=== PATIENT | female | born 1985 | race Caucasian/White ===

== ENCOUNTER 2017-07-07 12:57 | Outpatient (RCR) | payer OTHER | END 2017-07-14 | LOC: M OT 12:57 | DX: Z51.89 Encounter for other specified aftercare (principal); M65.4 Radial styloid tenosynovitis [de Quervain] | CPT/HCPCS: 97140 ==

== ENCOUNTER 2017-07-15 13:02 | Outpatient (RCR) | payer OTHER | END 2017-08-14 | LOC: M OT 07-17 13:00 | DX: Z51.89 Encounter for other specified aftercare (principal); M65.4 Radial styloid tenosynovitis [de Quervain] ==

== ENCOUNTER 2017-08-19 11:16 | Outpatient (RCR) | payer OTHER | END 2017-09-13 | LOC: M OT 11:16 | DX: Z51.89 Encounter for other specified aftercare (principal); M65.4 Radial styloid tenosynovitis [de Quervain] | CPT/HCPCS: 97110 ==

== ENCOUNTER 2018-08-17 08:59 | Outpatient (CLI) | payer OTHER ==
[~2018-08-17] VITALS: Ht 167.6 cm; Wt 109.0 kg
[2018-08-17 09:18] VITALS: BP 115/75
[2018-08-17] MEDS ORDERED: PRENTAB9 PO (09:20)
[2018-08-17 10:52] VITALS: BP 99/64
== END 2018-08-17 13:07 | disposition home or self-care (01) ==
LOC: M LDO 08:59
PROVIDERS: ATTEND Obstetrics & Gynecology
DX: O47.1 False labor at or after 37 completed weeks of gestation (principal); Z3A.40 40 weeks gestation of pregnancy
CPT/HCPCS: 59025; G0378; G0463

== ENCOUNTER 2018-08-18 09:12 | Inpatient (IN) | payer OTHER ==
[~2018-08-18] VITALS: Ht 167.6 cm; Wt 108.9 kg
[2018-08-18] VITALS (9 sets, daily range): BP systolic 113–138; BP diastolic 54–75
[~2018-08-18 09:12] MED LIST: PRENTAB9 PO
[2018-08-18] MEDS ORDERED: OXYTOCIN INJ 10 UNITS/ML VIAL (J2590) As Ordered ONE (09:41)
[2018-08-18] MEDS ORDERED: OXYTOCIN 30 UNITS IN 0.9% NaCl 500ML IV BAG (J2590) As Ordered ONE (09:41)
[2018-08-18 10:04] LABS: CORD GAS ABE V -3.6; CORD GAS HCO3 V 21.5 MEQ/L; CORD GAS O2 SAT V 77.3 %; CORD GAS PH V 7.359 UNITS; CORD GAS SBC V 21.1 MEQ/L; CORD GAS TCO2 V 22.7 MEQ/L
[2018-08-18 10:05] LABS: CORD GAS HCO3 A 23.9 MEQ/L; CORD GAS O2 SAT A 39.3 %; CORD GAS PH A 7.298 UNITS; CORD GAS PO2 A 20.3 mmHg; CORD GAS SBC A 20.6 MEQ/L; CORD GAS TCO2 A 25.5 MEQ/L
[2018-08-18 10:12] LABS: HEMATOCRIT 41.4 % (36.0-47.0); HEMOGLOBIN 13.7 g/dl (12.0-15.5); MEAN CORPUSCULAR HEMOGLOBIN 28.8 pg (27.0-33.0); MEAN CORPUSCULAR HGB CONC 33.1 g/dl (32.0-36.5); MEAN CORPUSCULAR VOLUME 87.2 fl (80.0-96.0); PLATELET COUNT, AUTOMATED 227 10^3/uL (150-450); RED BLOOD COUNT 4.75 10^6/uL (4.00-5.40); WHITE BLOOD COUNT 15.7 10^3/uL (4.0-10.0)
[2018-08-18] MEDS ORDERED: OXYTOCIN DRIP 30 UNITS in APPROPRIATE DILUENT 1 EA IV SCH (10:16)
[2018-08-18] MEDS ORDERED: LR 1,000 ML IV SCH (10:22)
[2018-08-18] MEDS ORDERED: MOM 30ML SUSPENSION UDC PO PRN (10:30)
[2018-08-18] MEDS ORDERED: METHYLERGONOVINE MALEATE 0.2 MG TAB PO PRN (10:30)
[2018-08-18] MEDS ORDERED: IBUPROFEN 800 MG TAB PO PRN (10:30)
[2018-08-18] MEDS ORDERED: DIBUCAINE 1% OINTMENT 30GM TOP PRN (10:30)
[2018-08-18] MEDS ORDERED: DOCUSATE SODIUM 100 MG CAP PO PRN (10:30)
[2018-08-18] MEDS ORDERED: MEASLES,MUMPS,RUBELLA VACCINE INJ (MMR-II) (90707) SC SCH (10:30)
[2018-08-18] MEDS ORDERED: RHOGAM 300 MCG (1500 IU) INJ (J2790) IM SCH (10:30)
[2018-08-18] MEDS ORDERED: OXYTOCIN INJ 10 UNITS/ML VIAL (J2590) IV ONE (10:30)
[2018-08-18] MEDS ORDERED: IBUPROFEN 600 MG TAB PO PRN (10:30)
[2018-08-18] MEDS ORDERED: ANUSOL HC CREAM 30GM TOP PRN (10:30)
[2018-08-18] MEDS ORDERED: ACETAMINOPHEN TAB 650MG DOSE (2X325MG) PO PRN (10:30)
[2018-08-18] MEDS: ACETAMINOPHEN 500 MG TAB PO PRN ×2 (11:50→18:45)
--- NOTE | 2018-08-18 12:55 | DN ---
DATE OF DELIVERY: 08/18/2018 This lady is a 3, para 2 admitted at 40 and 2 and fully dilated with meconium stained liqua and active pushing. She had a spontaneous vaginal delivery of a live female weighing 3340 grams, scores of 9 and 9 at one and five minutes, respectfully, 7 pounds 6 ounces. She had a little varicose vein in the introital area which was oversewn with a #2-0 Vicryl on a J339. Arterial pH 7.29, base excess -3.0, venous pH 7.35, base excess -3.6. Uterus contracted well under Pitocin. Anterior, posterior and lateral parish were intact. Sphincter was intact. The patient and baby tolerated procedure well. edited: 08/20/2018 1339 tkf MTDD
--- NOTE | 2018-08-18 13:15 | HPE ---
DATE OF ADMISSION: 08/18/2018 32-year-old 3, para 2, last menstrual period 11/09/2017, EDC 08/16/2018 at 40 and 2 weeks gestation in active labor, meconium stained liquor, fully dilated. The risk factors are asthma, BMI of 36, and CF carrier PAST HISTORY: 2016 at 41 weeks, spontaneous vaginal delivery with epidural 7 pounds 4 ounces. 2007 at 41 weeks, spontaneous vaginal delivery, live , 8 pounds with epidural. LABORATORIES: O+, HIV negative, hep negative, RPR negative, rubella immune. Varicella immune. Pap was negative, HPV negative. Urine was negative. Gonorrhea and chlamydia negative. 1-hour glucose early was 111. 1-hour GTT at 28 weeks was 116. Group B streptococcus (GBS) is negative. Blood pressure is 113/54, respirations 18, pulse 99 and temperature is 98.4. The patient is fully dilated and pushing, anticipate spontaneous vaginal delivery. A category one strip with occasional decelerations with pushing. With heavy meconium stained liquid, neonatology informed.
[2018-08-18] MEDS ORDERED: SLF 3 ML SYR IV PRN (13:45)
[2018-08-18] MEDS ORDERED: SLF 3 ML SYR IV SCH (14:00)
[2018-08-19 06:24] VITALS: BP 129/78
[2018-08-19 06:48] LABS: HEMATOCRIT 38.1 % (36.0-47.0); HEMOGLOBIN 12.4 g/dl (12.0-15.5); MEAN CORPUSCULAR HGB CONC 32.5 g/dl (32.0-36.5); PLATELET COUNT, AUTOMATED 183 10^3/uL (150-450); RED BLOOD COUNT 4.28 10^6/uL (4.00-5.40); WHITE BLOOD COUNT 11.7 10^3/uL (4.0-10.0)
[2018-08-19] MEDS ORDERED: COLA100C5 PO (06:51)
[2018-08-19] MEDS ORDERED: PROC1CRE5 TOP (06:51)
[2018-08-19] MEDS ORDERED: IBUP80TA PO (06:51)
[2018-08-19] MEDS ORDERED: DIBU10OI TOP (06:51)
[2018-08-19] MEDS ORDERED: PRENCHW PO (06:51)
[2018-08-19] MEDS ORDERED: ACET1TAB55 PO (06:51)
--- NOTE | 2018-08-19 07:21 | IPN ---
DATE: 08/19/2018 This lady is a 32-year-old 3, para 2 who was admitted fully dilated and pushing with significant meconium. She precipitously delivered a live female 7 pounds 6 ounces, 3340 grams, scores of 9 and 9 at one and five minutes respectively. She sustained a small little introital blood vessel which was oversewn with #2-0 Vicryl. Uterus contracted well down on Pitocin. Arterial pH was 7.29, base excess -3.0, venous pH 7.35, base excess -3.6. Her admitting hemoglobin was 13.7, hematocrit 41.4, platelets are 227. day #1 hemoglobin is pending. Her vital signs this morning her blood pressure is 129/78, respirations 18, pulse 80, temperature 97.9. We discussed phlebitis, cystitis, mastitis, endometritis, cellulitis, diet, exercise, pain management, perineal breast and wound care. control will be planned at her six week checkup. The rest examination unremarkable. Normocephalic, atraumatic. Neck full range of motion. Pupils equal and reactive to light. Distal pulses symmetric. No evidence of deep vein thrombosis (DVT), pulmonary embolism (PE), or superficial phlebitis. Chest is clear bilaterally to the bases. No wheezes or rhonchi. No CVA tenderness. Abdomen soft, uterus 2 below. Lochia is moderate. Four quadrant bowel sounds are noted. She has no cough, shortness of breath or dyspnea on exertion. No complaint of incontinence, urgency or frequency. No nausea, vomiting, diarrhea or constipation. In summary we have a term gestation, active labor, precipitously delivered. Plans are for discharge for the patient today. We are pending the discharge of the baby. She will have a six week checkup.
[2018-08-19] MEDS ORDERED: PRENATAL VITAMINS CHEWABLE TABLET PO SCH (09:00)
== END 2018-08-19 13:05 | disposition home or self-care (01) | DRG 807 ==
LOC: M LDO 09:12 → M LDI 09:27 → M OBS 14:47
PROVIDERS: ADMIT Advanced Practice Midwife; ATTEND Advanced Practice Midwife
PROC: 10E0XZZ Delivery of Products of Conception, External Approach (ICD-10-PCS; principal; 2018-08-18)
DX: O77.0 Labor and delivery complicated by meconium in amniotic fluid (principal); Z37.0 Single live birth; O48.0 Post-term pregnancy; Z3A.40 40 weeks gestation of pregnancy; O62.3 Precipitate labor; J45.909 Unspecified asthma, uncomplicated; O99.52 Diseases of the respiratory system complicating childbirth

== ENCOUNTER 2020-04-04 15:10 | Inpatient (IN) | payer OTHER ==
[2020-04-04] VITALS (8 sets, daily range): BP systolic 115–137; BP diastolic 62–90
[~2020-04-04 15:10] MED LIST changes: +ACET1TAB55 PO; +COLA100C5 PO; +DIBU10OI TOP; +IBUP80TA PO; +PRENCHW PO; +PROC1CRE5 TOP
[2020-04-04] MEDS ORDERED: LR 1,000 ML IV SCH (15:54)
[2020-04-04] MEDS ORDERED: LACTATED RINGER'S 1000 ML IV ONE (16:00)
[2020-04-04 16:29] LABS: HEMATOCRIT 42.5 % (36.0-47.0); HEMOGLOBIN 13.8 g/dl (12.0-15.5); MEAN CORPUSCULAR HEMOGLOBIN 27.2 pg (27.0-33.0); MEAN CORPUSCULAR HGB CONC 32.5 g/dl (32.0-36.5); MEAN CORPUSCULAR VOLUME 83.7 fl (80.0-96.0); PLATELET COUNT, AUTOMATED 249 10^3/uL (150-450); RED BLOOD COUNT 5.08 10^6/uL (4.00-5.40); WHITE BLOOD COUNT 15.4 10^3/uL (4.0-10.0)
[2020-04-04] MEDS ORDERED: TUMS500C PO (16:31)
[2020-04-04] MEDS ORDERED: VITAD400CA FT (16:31)
[2020-04-04] MEDS ORDERED: OXYTOCIN 30 UNITS IN 0.9% NaCl 500ML IV BAG (J2590) As Ordered ONE (17:00)
[2020-04-04 17:36] LABS: CORD GAS ABE V -2.1; CORD GAS O2 SAT V 63.3 %; CORD GAS PCO2 V 45.7 mmHg; CORD GAS PH V 7.339 UNITS; CORD GAS SBC V 21.8 MEQ/L; CORD GAS TCO2 V 25.4 MEQ/L
[2020-04-04 17:37] LABS: CORD GAS ABE A -4.7; CORD GAS HCO3 A 25.2 MEQ/L; CORD GAS O2 SAT A 30.2 %; CORD GAS PCO2 A 66.5 mmHg; CORD GAS PH A 7.196 UNITS; CORD GAS PO2 A 18.5 mmHg; CORD GAS SBC A 18.9 MEQ/L; CORD GAS TCO2 A 27.2 MEQ/L
[2020-04-04] MEDS ORDERED: OXYTOCIN DRIP 30 UNITS in IV 1 EA IV SCH (17:40)
[2020-04-04] MEDS ORDERED: BENZOCAINE 20% HEMORRHOIDAL OINTMENT 28GM TUBE TOP PRN (17:45)
[2020-04-04] MEDS ORDERED: ACETAMINOPHEN TAB 650MG DOSE (2X325MG) PO PRN (17:45)
[2020-04-04] MEDS ORDERED: RHOGAM 300 MCG (1500 IU) INJ (J2790) IM SCH (17:45)
[2020-04-04] MEDS ORDERED: IBUPROFEN 600MG TAB PO PRN (17:45)
[2020-04-04] MEDS ORDERED: MEASLES,MUMPS,RUBELLA VACCINE INJ (MMR-II) (90707) SC SCH (17:45)
[2020-04-04] MEDS ORDERED: ACETAMINOPHEN 500 MG TAB PO PRN (17:45)
--- NOTE | 2020-04-04 17:50 | DNPDOC ---
[facility] Delivery Note Delivery Note DATE OF DELIVERY: 04 Apr 2020 PREDELIVERY DIAGNOSIS: 40w2d gestation and labor. POST DELIVERY DIAGNOSIS: Delivered. PROCEDURE: Spontaneous vaginal delivery PLATE CLEANER: Dr. Francisca Haywood MD for [facility] service ANESTHESIA: none ESTIMATED BLOOD LOSS: 200 mL. FINDINGS: 8 pound 1 ounce (3650g) male , Score 7/9, nuchal cord times 1 DELIVERY SUMMARY: Lily is a 34yo [id number] s/p uncomplicated at 1706 on 04/04/20 after presenting in active labor at 40w2d. She was 6cm on presentation and rapidly progressed to C/C/-1, at which point she had SROM, clear and unavoidable urge to push. Dr. Chicas was needed urgently for another patient, so I performed the delivery for Lily. With excellent maternal effort, head delivered OA, restituted DEYSI. Tight nuchal cord was not reducible prior to delivery of the body. Right anterior shoulder easily delivered followed by posterior shoulder and corpus. Nuchal cord then reduced. Terminal meconium observed. placed on maternal abdomen, spontaneous cry noted and was vigorous with apgars 7 /9, nose and mouth suctioned with bulb suction. After approximately 2 minutes, cord was clamped x2 and cut by FOB. Cord gases obtained with pHa 7.196 BE -4.7 and pHv 7.339 BE -2.1. Cord blood obtained for MBT. With traction on the cord and uterine massage, placenta delivered spontaneously and intact with 3 vessel centrally inserted cord. More uterine massage performed, IV pitocin given per protocol, fundus then firm at u-2cm with hemostasis noted. Inspection of perineum and vagina revealed small superficial sanaz at introitus repaired with 4-0 vicryl with a single figure of 8 suture with complete reapproximation and hemostasis noted. Mom and infant were doing well when I left the room. MD Chastity Nguyễn Katrina D MD Apr 04, 2020 17:50
[2020-04-04] MEDS ORDERED: OXYTOCIN INJ 10 UNITS/ML VIAL (J2590) IV ONE (18:00)
[2020-04-04] MEDS: IBUPROFEN 800 MG TAB PO PRN (18:12)
--- NOTE | 2020-04-04 19:07 | HPEPDOC ---
Obstetrical History & Physical General Date of Admission Apr 04, 2020 at 15:54 Primary Care Physician: Koby Chicas MD History of Present Illness Vital Signs Label Value Date Time Pulse 107 04/04/20 1802 Respiratory Rate 18 bpm 04/04/20 1802 Blood Pressure Assessment 133/65 (87) 04/04/20 1802 Source Automatic Cuff (NIBP) Blood Pressure Assessment 131/63 (85) 04/04/20 1747 Source Automatic Cuff (NIBP) Respiratory Rate 18 bpm 04/04/20 1747 Pulse 107 04/04/20 1747 Pulse 109 04/04/20 1735 Respiratory Rate 18 bpm 04/04/20 1735 Blood Pressure Assessment 130/79 (96) 04/04/20 1735 Source Automatic Cuff (NIBP) Blood Pressure Assessment 115/90 (98) 04/04/20 1714 Source Automatic Cuff (NIBP) Respiratory Rate 18 bpm 04/04/20 1714 Pulse 115 04/04/20 1714 Pulse 112 04/04/20 1645 Respiratory Rate 18 bpm 04/04/20 1645 Blood Pressure Assessment 134/62 (86) 04/04/20 1645 Source Automatic Cuff (NIBP) Bedside Pulse Oximetry 98 % 04/04/20 1645 Blood Pressure Assessment 126/81 (96) 04/04/20 1534 Source Automatic Cuff (NIBP) Respiratory Rate 20 bpm 04/04/20 1534 Pulse 121 04/04/20 1534 Patient Temperature 98.1 degrees F 04/04/20 1534 Temperature Source Temporal 04/04/20 1534 34 yo LMP 06/27/2019 EDC 04/02/20 AT 40.2 WEEKS ACTIVE LABOR AT TERM AFTER MEMBRANE STRIPPING Chief Complaint: Contractions, term Information Provided By: Patient Age: 34 : 4 Term: 3 Pre-term: 0 Abortions: 0 Livin Care Care: Good Care Dating Final EDC: Apr 02, 2020 Final EDC for Daily Update: Apr 02, 2020 Final EDC by: LMP (06/27/19) LMP: Jun 27, 2019 1st Trimester Date: Sep 15, 2019 Weeks + Days: 11.3 Estimated Date of Confinement: Apr 02, 2020 EGA at Admission: 40.2 Antepartum Course Diagnos(e)s risk factors short interval bmi 35.5 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 Sex of : Male Complications: No Past Obstetrical History #2: Past Obstetrical History: Multigravida Date of Delivery: Oct 22, 2016 Gestation: 41 Type of Delivery: Spontaneous Vaginal Del. Sex of Infant: Female Complications: No Past Obstetrical History #3: Past Obstetrical History: Multigravida Date of Delivery: Oct 22, 2018 Gestation: 41 Type of Delivery: Spontaneous Vaginal Del. Sex of : Female Complications: No WARPER TENDER History: No pertinent history Past Medical History Surgical History: Denies/None Family History Significant Family History: No pertinent family hx Social History Marital Status: Family situation: Spouse/partner home Psychosocial History: No pertinent psych hx, Depression * Smoker: non-smoker Alcohol: Denies Drugs: denies Abuse Violence Screening Have you been hit/kicked/slapp: No Have you been sexually assault: No Imunizations Tdap status: current Influenza Status: current Allergies Coded Allergies: No Known Allergies (Unverified , 08/17/18) Medications Scheduled No.137/Iron/Folic Acd ( Vitamin Tablet) 1 Each Tablet, 1 TAB PO DAILY Vitamin D (Vitamin D3) 10 Mcg Tablet, 400 MCG FT DAILY Scheduled PRN Calcium Carbonate (Tums) 200 Mg Tab.chew, 500 MG PO PRN PRN for HEARTBURN Physical Examination Physical Examination GENERAL: Alert and oriented times three. BREAST: . ABDOMEN: Gravid and non-tender to touch. FETUS: Is vertex (VTX) by sterile vaginal examination (SVE), fetus is vertex (VTX) by Joel. HEART RATE: Regular rate and rhythm. LUNGS: Clear to auscultation (CTA). EXTREMITIES: No edema. No clonus. Deep tendon reflexes NORMAL Other physical findings ACTIVE LABOR IN ACUTE DISTRESS CONTRACTIONS MODERATE FELT LIKE PUSHING WAS 8 CM VERTEX OT -1 STATION SROM ACTIVELY PUSHING UNCONTROLLABLE Laboratory Data 24H LABS Laboratory Tests 2 04/04/20 16:05: Serology Scanned Report Hepatitis B Testing Pertinent Laboratoy Data Blood Type: O+ RBC Antibody Screen: Negative HIV: Negative Hepatitis B: Negative Rapid Plasma Reagin: Nonreactive Rubella: Immune Varicella: Immune Chlamydia/Gonorrhea: Negative Group B Streptococcus: Unknown Cystic Fibrosis: Negative Anatomy Ultrasound Placenta Location: Anterior Normal Anatomy: Yes Steroid Therapy Steroid Therapy: No Vaginal Examination Dilation: 8 cm Effacement: 100% Station: -1 Cervical Consistency: Soft Cervical Position: Anterior Presentation: Cephalic presentation Position: Vertex (occiput) Assessment Variability: Moderate Accelerations: Present Decelerations: None Tocometer Contractions: Yes Frequency: regular, every 1-5 min. Duration: less than 60 seconds Strength: palpated as strong Assessment/Plan Assessment 34 year-old (G4 para (P 3 at 40.2 weeks by 11.3week ultrasound. Presents to Labor and Delivery ACTIVE AT 8 CM . Plan Admit and orient. 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 Diet: NPO Group B Streptococcus (GBS) [negative]. Labs and intravenous (IV) per unit protocol. Counseled on Pitocin and induction of labor (IOL). Lactated Ringers (LR): Bolus mL, then at mL/hr. Anticipate [normal spontaneous delivery ( IMMINENT . C-S as appropriate. Labor and Delivery Counseling Item Value Date Time White Blood Count 15.4 10^3/uL H 04/04/20 1618 Red Blood Count 5.08 10^6/uL 04/04/20 1618 Hemoglobin 13.8 g/dl 04/04/20 1618 Hematocrit 42.5 % 04/04/20 1618 Mean Corpuscular Volume 83.7 fl 04/04/20 1618 Mean Corpuscular Hemoglobin 27.2 pg 04/04/20 1618 Mean Corpuscular Hemoglobin Concent 32.5 g/dl 04/04/20 1618 Red Cell Distribution Width 14.5 % 04/04/20 1618 Platelet Count 249 10^3/uL 04/04/20 1618 Nucleated Red Blood Cells % (auto) 0.0 % 04/04/20 1618 PLAN IMMENENT DELIVERY NO TIME FOR EPIDURAL IV STARTED AND PATIENT PUSHING Koby Chicas MD Apr 04, 2020 16:12
[2020-04-04] MEDS: SERTRALINE HCL 25 MG TABLET PO SCH (21:03)
[2020-04-04] MEDS: DOCUSATE SODIUM 100MG CAPSULE PO PRN (21:07)
[2020-04-04] MEDS: CALCIUM CARBONATE 500 MG CHEW U/D PO PRN (22:16)
[2020-04-05] MEDS: IBUPROFEN 800 MG TAB PO PRN ×2 (05:24→13:06)
[2020-04-05 06:00] VITALS: BP 133/60
[2020-04-05] MEDS: PRENATAL VITAMINS CHEWABLE TABLET PO SCH (08:45)
[2020-04-05 18:00] VITALS: BP 141/76
[2020-04-05] MEDS: SERTRALINE HCL 25 MG TABLET PO SCH (20:58)
[2020-04-05] MEDS: DOCUSATE SODIUM 100MG CAPSULE PO PRN (20:58)
[2020-04-05] MEDS: CALCIUM CARBONATE 500 MG CHEW U/D PO PRN (22:10)
[2020-04-06 05:52] VITALS: BP 137/63
[2020-04-06] MEDS ORDERED: ACET-683 PO (06:58)
[2020-04-06] MEDS ORDERED: IBUP80TA PO (06:58)
--- NOTE | 2020-04-06 07:13 | DS.PDOC ---
Discharge Summary General Date of Admission Apr 04, 2020 at 15:54 Date of Discharge Apr 06, 2020 Discharge Summary HOSPITAL COURSE: Lily is a 34 yo G4 now P4 who underwent an uncomplicated on 04Apr2020 after being admitted for active labor. Her course has been unremarkable. On her day of discharge she met all appropriate discharge criteria. She was ambulating, voiding, tolerating a regular diet, had minimal lochia, and her pain was well controlled with PO pain medications. DISCHARGE MEDICATIONS: Please see below. ALLERGIES: Please see below. PHYSICAL EXAMINATION ON DISCHARGE: VITAL SIGNS: Please see below. GENERAL: AAOX3, laying in bed, NAD, pleasant and conversant ABDOMINAL EXAMINATION: Abdomen soft, nondistended. No tenderness to palpation. Fundus firm at U-2. No fundal tenderness. EXTREMITIES: No edema PSYCHIATRIC EXAMINATION: Affect appropriate LABORATORY DATA: Please see below. ACTIVITY: Pelvic rest for 6 weeks. DIET: Regular DISCHARGE PLAN: Discharge home or to boarder DISPOSITION: .Discharge home or to boarder on 06Apr2020 DISCHARGE INSTRUCTIONS: 1. Pelvic rest for 6weeks ITEMS TO FOLLOWUP ON ON OUTPATIENT: 1. appointment in 6-8 weeks DISCHARGE CONDITION: Stable TIME SPENT ON DISCHARGE: Greater than 20 minutes. Martha Oconnor DO Vital Signs/I&Os Vital Signs Date Time Temp Pulse Resp B/P (MAP) Pulse Ox O2 Delivery O2 Flow Rate FiO2 04/06/20 05:52 96.9 88 18 137/63 (87) 04/04/20 19:42 97 Room Air Discharge Medications Scheduled No.137/Iron/Folic Acd ( Vitamin Tablet) 1 Each Tablet, 1 TAB PO DAILY, (Reported) Vitamin D (Vitamin D3) 10 Mcg Tablet, 400 MCG FT DAILY, (Reported) Scheduled PRN Acetaminophen (Acetaminophen) 500 Mg Tablet, 1,000 MG PO Q6HP PRN for PAIN LEVEL 6-10 Calcium Carbonate (Tums) 200 Mg Tab.chew, 500 MG PO PRN PRN for HEARTBURN, (Re ported) Ibuprofen (Ibuprofen) 800 Mg Tablet, 800 MG PO Q8HP PRN for PAIN LEVEL 6-10 Allergies Coded Allergies: No Known Allergies (Unverified , 08/17/18) MARTHA OCONNOR DO Apr 06, 2020 07:13
[2020-04-06] MEDS: PRENATAL VITAMINS CHEWABLE TABLET PO SCH (08:06)
--- NOTE | 2020-04-12 09:26 | IPNPDOC ---
Text Note Date of Service The patient was seen on 04/04/20 NOTE PATIENT REQUESTED CIRCUMCISION INFANT. REVIEWED RISK BENEFITS OF CIRCUMCISION . EXPRESSED UNDERSTANDING RISK BLEEDING INFECTION . REVIEWED PENILE BLOCK SIGNED CONSENT 20 MINUTE DISCUSSION ALL QUESTIONS ANSWERED AWAITING CLEARANCE BY DRAPERY WORKER Ivanna ROBERTS, I+Ivanna WIN I+O Vital Signs Date Time Temp Pulse Resp B/P (MAP) Pulse Ox O2 Delivery O2 Flow Rate FiO2 04/06/20 05:52 96.9 88 18 137/63 (87) Koby Chicas MD Apr 12, 2020 09:26
== END 2020-04-06 14:15 | disposition home or self-care (01) | DRG 807 ==
LOC: M LDO 15:10 → M LDI 15:54 → M OBS 19:35
PROVIDERS: ADMIT Obstetrics & Gynecology; ATTEND Obstetrics & Gynecology
PROC: 10E0XZZ Delivery of Products of Conception, External Approach (ICD-10-PCS; principal; 2020-04-04)
PROC: 0HQ9XZZ Repair Perineum Skin, External Approach (ICD-10-PCS; 2020-04-04)
DX: O69.1XX0 Labor and delivery complicated by cord around neck, with compression, not applicable or unspecified (principal); Z37.0 Single live birth; Z3A.40 40 weeks gestation of pregnancy; O77.0 Labor and delivery complicated by meconium in amniotic fluid; O70.0 First degree perineal laceration during delivery

== ENCOUNTER → 2020-08-08 | Day surgery (SDC) | payer OTHER ==
[~2020-08-08] VITALS: Ht 167.6 cm; Wt 106.6 kg
[~2020-08-08] MED LIST changes: +ACET-683 PO; +ACETAMINOPHEN 650 MG SUPP As Ordered ONE; +BUPIVACAINE HCL 0.25% 10ML VIAL As Ordered ONE; -DIBU10OI TOP; +DIBU28OI2 TOP; +KETOROLAC 30 MG/ML 1ML VIAL IV PRN; +KETOROLAC 60MG 2ML VIAL As Ordered ONE; +LIDOCAINE 1% MDV 20ML VIAL SQ PRN; +LIDOCAINE 2% 100MG/5ML SDV (FOR ANES.) As Ordered ONE; +LR 1,000 ML IV ONE; +LR 1,000 ML IV SCH; +METOCLOPRAMIDE INJ 10MG/2ML VIAL (J2765 PER 1) As Ordered ONE; +METOCLOPRAMIDE INJ 10MG/2ML VIAL (J2765 PER 1) IV PRN; +MIDAZOLAM INJ 2MG/2ML VIAL (J2250 PER 1MG) As Ordered ONE; +ONDANSETRON 4MG/2ML VIAL As Ordered ONE; +ONDANSETRON 4MG/2ML VIAL IV PRN; +ROCURONIUM BROMIDE 50 MG/5 ML VIAL As Ordered ONE; +SCOPOLAMINE 1MG TRANSDERMAL PATCH TOP ONE; +SEVOFLURANE INHAL SOLN 250 ML BTL As Ordered ONE; +SUGAMMADEX SODIUM 500 MG/5 ML VIAL (BRIDION) As Ordered ONE; +TUMS500C PO; +VITAD400CA FT; +dexameTHASONE 4 MG/ML 1ML VIAL (J1100 PER 1MG) As Ordered ONE; +fentaNYL 100 MCG/2 ML INJECTION (J3010) As Ordered ONE; +propofoL 200 MG/20 ML VIAL As Ordered ONE
[2020-08-08 08:46] LABS: HEMATOCRIT 43.5 % (36.0-47.0); HEMOGLOBIN 13.7 g/dl (12.0-15.5); MEAN CORPUSCULAR HEMOGLOBIN 27.7 pg (27.0-33.0); MEAN CORPUSCULAR HGB CONC 31.5 g/dl (32.0-36.5); MEAN CORPUSCULAR VOLUME 87.9 fl (80.0-96.0); PLATELET COUNT, AUTOMATED 240 10^3/uL (150-450); RED BLOOD COUNT 4.95 10^6/uL (4.00-5.40)
[2020-08-08 09:14] LABS: BLOOD UREA NITROGEN 17 MG/DL (7-18); CARBON DIOXIDE LEVEL 23 MEQ/L (21-32); CHLORIDE LEVEL 111 MEQ/L (98-107); CREATININE FOR GFR 0.56 MG/DL (0.55-1.30); GLOMERULAR FILTRATION RATE > 60.0 (>60); GLUCOSE, FASTING 86 MG/DL (70-100); HCG, SERUM QUANTITATIVE < 1.0 MIU/ML; POTASSIUM SERUM 4.2 MEQ/L (3.5-5.1); SODIUM LEVEL 140 MEQ/L (136-145)
[2020-08-08 09:34] LABS: HEMOGLOBIN A1c 5.1 %
[2020-08-08] MEDS: fentaNYL 100 MCG/2 ML INJECTION (J3010) IV PRN ×2 (11:10→11:35)
[2020-08-08] MEDS: oxyCODONE 5MG TAB PO PRN ×2 (11:22→11:48)
[2020-08-08 13:00] VITALS: BP 127/68
== END | disposition home or self-care (01) ==
LOC: M SDC 08:05
PROVIDERS: ATTEND Obstetrics & Gynecology
DX: Z30.2 Encounter for sterilization (principal); J45.909 Unspecified asthma, uncomplicated; F32.9 Major depressive disorder, single episode, unspecified
CPT/HCPCS: 36415; 58661; 80048; 83036; 84702; 85027; 88302; J1100; J1885; J2250; J2405; J2765; J3010